=== PATIENT | female | born 1990 | race African-American/Black ===

== ENCOUNTER 2017-05-16 04:28 | Emergency (ER) | payer MEDICAID, OTHER ==
[~2017-05-16] VITALS: Ht 162.6 cm; Wt 59.0 kg
[2017-05-16] MEDS ORDERED: AZITHROMYCIN 500 MG TABLET PO ONE (05:30)
[2017-05-16] MEDS ORDERED: CEFTRIAXONE SODIUM 250 MG/VIAL IM ONE (05:30)
[2017-05-16] MEDS ORDERED: STERILE WATER FOR INJECTION 10ML VIAL ONE (05:50)
[2017-05-16 06:01] VITALS: BP 129/78
[2017-05-19 17:11] LABS: CHLAMYDIA TRACHOMATIS NAA Positive (Negative); NEISSERIA GONORRHOEAE NAA Negative (Negative)
== END 2017-05-16 06:03 | disposition home or self-care (01) ==
LOC: ER 04:57
DX: Z20.2 Contact with and (suspected) exposure to infections with a predominantly sexual mode of transmission (principal); F12.10 Cannabis abuse, uncomplicated; F17.200 Nicotine dependence, unspecified, uncomplicated; Z98.890 Other specified postprocedural states
CPT/HCPCS: 87491; 87591; 96372; 99284; A4216; J0696; Z7610; 99283